=== PATIENT | male | born 1950 | race Caucasian/White ===

== ENCOUNTER → 2017-01-18 | Outpatient (CLI) | payer MEDICARE, OTHER ==
--- NOTE | 2017-01-19 13:06 | XCELERA REPORT ---
[address] [address] Lower Extremity Arterial Evaluation Name: CAITLYN GLASGOW Age: 66 yrs Gender: Male : 1950 Patient Status: Outpatient Patient Location: Study Date: 01/18/2017 09:22 AM Procedure: A color flow and duplex scan of the lower extremity arteries was performed bilaterally with velocity and waveform anaylsis. Ankle brachial indicies performed. Reason For Study: LEFT CALF ULCER Ordering Physician: WU MALAVE Performed By: Quentin Ma Right Side Arterial Evaluation Normal velocity and triphasic waveforms noted from the Common Femoral artery to the infrageniculate vessels. 0 % stenosis noted . Ankle Brachial index is 1.36. Left Side Arterial Evaluation Normal velocity and triphasic waveforms noted from the Common Femoral artery to the Popliteal artery. Biphasic in the infrageniculate vessels. Maintained velocities, moderate broadening 20-49 % stenosis noted . At the infrageniculate level Ankle Brachial index is 1.37. Interpretation Summary No hemodynamically significant lesions in the right lower extremity only, on duplex imaging, at rest. Moderate hemodynamically significant lesions in the left lower extremity only, on duplex imaging, at rest. : WU MALAVE > Hernesto Nazario
--- NOTE | 2017-01-22 16:51 | XCELERA REPORT ---
[address] [address] Lower Extremity Venous Evaluation Name: CAITLYN GLASGOW Age: 66 yrs Gender: Male : 1950 Patient Status: Outpatient Patient Location: Study Date: 01/18/2017 09:49 AM Procedure: A bilateral duplex scan of the lower extremity veins was performed. The evaluation included responses to compression and other maneuvers with patient in the supine and standing positions to assess venous insufficiency. Reason For Study: LEFT CALF ULCER Ordering Physician: WU MALAVE Performed By: Quentin Ma Right Sided Venous Evaluation Deep venous system evaluatiion shows patent veins with no obstruction or significant reflux identified. Sapheno Femoral junction: no reflux. Femoral vein reflux: no reflux. Greater Saphenous vein, Proximal thigh: reflux: no reflux. Greater Saphenous vein, Mid thigh: reflux: 3.9 seconds, 5 mm diameter. Greater Saphenous vein, Distal thigh: reflux: no reflux. Greater Saphenous vein, Proximal below knee: reflux: 4.1 seconds, 7 mm diameter. No significant Perforators identified. Left Sided Venous Evaluation Deep venous system evaluatiion shows patent veins with no obstruction or significant reflux identified. Sapheno Femoral junction: no reflux. Femoral vein reflux: 3.3 seconds. Greater Saphenous vein, Proximal thigh: reflux: no reflux. Greater Saphenous vein, Mid thigh: reflux: 1.5 seconds.13 mm. Greater Saphenous vein, Distal thigh: reflux: 2.4 seconds.8 mm. Greater Saphenous vein, Proximal below knee: reflux: 1.5 seconds, 7 mm diameter. Greater Saphenous vein, Mid below knee: reflux: 2.4 seconds, 7 mm diameter. No significant Perforators identified. Interpretation Summary No duplex evidence of DVT or obstruction in the bilateral lower extremities. Reflux as noted. Pattern of disease on the left may be susceptible to closure. : WU MALAVE [place]
== END ==
LOC: SP 08:36
PROVIDERS: ATTEND Nurse Practitioner Family
DX: L97.222 Non-pressure chronic ulcer of left calf with fat layer exposed (principal)
CPT/HCPCS: 93925; 93970

== ENCOUNTER → 2019-05-06 | Outpatient (CLI) | payer MEDICARE, OTHER ==
--- NOTE | 2019-05-06 10:22 | RADIOLOGY REPORT (SQ) ---
EXAM DESCRIPTION: U/S RETROPERITON (RENAL/AORTA) COMPLETED DATE/TIME: 05/06/2019 10:13 am REASON FOR STUDY: N18.3 CHRONIC KIDNEY DISEASE, STAGE 3 (MODERATE) N18.3 CHRONIC KIDNEY DISEASE, ST AGE 3 (MODERATE) COMPARISON: None. TECHNIQUE: Dynamic and static grayscale images acquired of the kidneys and bladder and recorded on P ACS. Additional selected color Doppler and spectral images recorded. LIMITATIONS: None. FINDINGS: RIGHT KIDNEY: The right kidney measures 11.0 cm in length. Echogenicity is mildly incre ased. No solid or suspicious masses. No hydronephrosis. No calcifications. LEFT KIDNEY: The left kidney measures 12.8 cm in length. Echogenicity is mildly increased. No so lid or suspicious masses. No hydronephrosis. No calcifications. BLADDER: No masses. OTHER FINDINGS: No other significant finding. IMPRESSION: Normal renal size. Mild increased echogenicity bilaterally. No hydronephrosis. TECHNICAL DOCUMENTATION: JOB ID: [id number] [employer]- All Rights Reserved Reading location - IP/workstation name: [email or web address]
== END ==
LOC: RAD 09:36
PROVIDERS: ATTEND Internal Medicine
DX: N18.3 Chronic kidney disease, stage 3 (moderate) (principal)
CPT/HCPCS: 76770

== ENCOUNTER 2019-05-08 16:21 | Inpatient (IN) | payer MEDICARE, OTHER ==
[2019-05-08 17:33] LABS: ABSOLUTE BASOPHILS # (AUTO) 0.1 10^3/uL (0.0-0.2); ABSOLUTE EOSINOPHILS # (AUTO) 0.2 10^3/uL (0.0-0.6); ABSOLUTE LYMPHOCYTES (AUTO) 0.8 10^3/uL (0.5-4.7); ABSOLUTE MONOCYTES (AUTO) 0.9 10^3/uL (0.1-1.4); ABSOLUTE NEUT (AUTO) 3.3 10^3/uL (1.7-8.2); BASOPHILS % (AUTO) 1.4 % (0-2); EOSINOPHILS % (AUTO) 4.1 % (0-6); HEMATOCRIT 29.6 % (37.9-51.0); LYMPHOCYTES % (AUTO) 14.7 % (13-45); MEAN CORPUSCULAR HEMOGLOBIN 32.3 pg (27.0-33.4); MEAN CORPUSCULAR HGB CONC 33.8 g/dL (32.0-36.0); MEAN CORPUSCULAR VOLUME 96 fl (80-97); MONOCYTES % (AUTO) 16.5 % (3-13); PLATELET COUNT 184 10^3/uL (150-450); RED CELL DISTRIBUTION WIDTH 16.7 % (11.5-14.0); SEGMENTED NEUTROPHILS % (AUTO) 63.3 % (42-78); TOTAL CELLS COUNTED % (AUTO) 100 %; WHITE BLOOD COUNT 5.2 10^3/uL (4.0-10.5)
[2019-05-08 17:37] LABS: VENOUS BLOOD BASE EXCESS -0.8 mmol/L; VENOUS BLOOD HCO3 23.6 mmol/L (20-32); VENOUS BLOOD PCO2 37.9 mmHg (35-63); VENOUS BLOOD PH 7.41 (7.30-7.42)
[2019-05-08 17:53] LABS: ALKALINE PHOSPHATASE 118 U/L (38-126); ANION GAP 9 (5-19); ASPARTATE AMINO TRANSFERASE 22 U/L (17-59); BILIRUBIN,DIRECT 0.4 mg/dL (0.0-0.4); BLOOD UREA NITROGEN 34 mg/dL (7-20); CALCIUM 8.9 mg/dL (8.4-10.2); CARBON DIOXIDE 25 mmol/L (22-30); CHLORIDE 111 mmol/L (98-107); GLUCOSE 80 mg/dL (75-110); POTASSIUM 3.8 mmol/L (3.6-5.0); TOTAL PROTEIN 6.1 g/dL (6.3-8.2)
[2019-05-08 17:54] LABS: INTERNATIONAL RATION (INR) 1.23; PROTHROMBIN TIME 15.6 SEC (11.4-15.4)
[2019-05-08 20:14] LABS: APPEARANCE,URINE CLEAR; BILIRUBIN,URINE NEGATIVE (NEGATIVE); COLOR,URINE YELLOW; GLUCOSE, URINE NEGATIVE (NEGATIVE); KETONES,URINE NEGATIVE (NEGATIVE); LEUKOCYTE ESTERASE,URINE NEGATIVE (NEGATIVE); NITRITE,URINE NEGATIVE (NEGATIVE); PROTEIN,URINE NEGATIVE (NEGATIVE); URINE SPECIFIC GRAVITY 1.013; UROBILINOGEN,URINE NEGATIVE mg/dL (<2.0)
[2019-05-08 20:35] LABS: ADD MANUAL MICROSCOPIC YES
[2019-05-08 20:37] LABS: BACTERIA,URINE TRACE /HPF
--- NOTE | 2019-05-08 20:47 | ER Document Report ---
HPI - HPI Patient complains to provider of: weakness, shaking Time Seen by Provider: 05/08/19 20:21 Onset: Last week Onset/Duration: Gradual, Waxing and waning Quality of pain: No pain Severity: Mild Pain Level: Denies Context: 69 yr old male with the list pmh, here for multiple nonspecific complaints, accompanied by his , that have worsened over the last week or more. endorses worsening resting tremors, generalized fatigue, and malaise. no hx of parkinsons or recent etoh use. however states he used to be a heavy drinker >20yrs ago. also states he hasn't been as mobile and able to get around to do his adl's like he use to despite using his chronic walker. states he has fallen multiple times at home with the last being today when he was trying to get up out of his chair so they came in. she denies him hitting his head, laying on the ground for extended periods of time, and no loc. no vomiting. no blood thinners other than asa and xarelto for hx of a. fib. he is also rate controlled with hydralazine, metoprolol, and norvasc per . also on thyroid meds. the pt himself is a poor historian and denies any complaints and is just asking to go home, secondary to this, hx is somewhat limited and mostly taken from who appears well versed in his care and is at bedside. pts states he isn't a complainer and he has siblings and close family members that aren't doing well health britt and he is worried he is about to of health issues also. he denies si/hi, or vis/aud hallucinations. he does feel safe at home. no changes in meds or diet. no changes in weight. pcp is dr do. no recent illness. no recent abx or steroids. hx of diabetes but states sugars are well controlled. no hx of asthma. not on home o2. he does appear a little sob on exam; however, does speak in full but slightly shorter winded sentences but continues to deny and sx or that he is sob or having any trouble breathing. 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 he has chronic bilat lower extremity lymphedema with chronic nonhealing venous stasis wounds to his lower legs that the manages and states they are at baseline to even a little improved from what they have been in the past. denies any recent recent stress, echo, cath, or cva work up. no prior hx of mi, cva, or tia. he does have a hx of chf. he is on hctz only. denies intoxication. hasn't f/u for his sx as per pt doesn't like to go to the doctors. endorses med compliance. no other complaints at this time. he is able to walk. no other changes in neurologic per . also states he is usually bradycardic but never gets below high 40s and usually runs high 40s-low 60s. Exacerbated by: Movement Relieved by: Remaining still Similar symptoms previously: No Recently seen / treated by doctor: No - ROS Systems Reviewed and Negative: Yes All other systems reviewed and negative - To include 10 systems, unless mentioned in the hpi. Past Medical History - General Information source: Patient, Relative - - Social History Smoking Status: Former Smoker Frequency of alcohol use: None Drug Abuse: None Lives with: Spouse/Significant other Family History: Reviewed & Not Pertinent Patient has suicidal ideation: No Patient has homicidal ideation: No - Past Medical History Cardiac Medical History: Reports: Hx Atrial Fibrillation - paroxysmal-rate controlled with metoprolol, norvasc, hydralazine per , Hx Congestive Heart Failure, Hx Coronary Artery Disease, Hx Hypercholesterolemia, Hx Hypertension, Hx Peripheral Vascular Disease, Hx Pulmonary Embolism - on xarelto and asa, Other - chronic bilat lower extremity lymphedema. L>R Pulmonary Medical History: Reports: Hx Pneumonia - a few times yearly, Hx Sleep Apnea - obstructive-not compliant with cpap Denies: Hx Asthma, Hx COPD, Hx Tuberculosis Neurological Medical History: Denies: Hx Cerebrovascular Accident, Hx Migraine, Hx Seizures Endocrine Medical History: Reports: Hx Diabetes Mellitus Type 2, Hx Hypothyroidism Renal/ Medical History: Reports: Hx Renal Insufficiency. Denies: Hx Hemodialysis, Hx Kidney Stones, Hx Peritoneal Dialysis GI Medical History: Reports: Hx Gastroesophageal Reflux Disease Musculoskeletal Medical History: Reports Hx Arthritis, Reports Hx Musculoskeletal Deformity - chronic rle atrophy Skin Medical History: Reports Hx Cellulitis - chronic nonhealing venous stasis ulcerations-bilat lower extremities Traumatic Medical History: Denies: Hx Pneumothorax, Hx Spleen Laceration/Rupture, Hx Traumatic Brain Injury Infectious Medical History: Denies: Hx Hepatitis, Hx HIV Past Surgical History: Denies: Hx Cardiac Catheterization, Hx Internal Defibrillator, Hx Kidney (Renal Surgery), Hx Pacemaker, Hx Thyroid Surgery, Hx Valve Replacement, Hx Vascular Surgery - Immunizations Immunizations up to date: Yes Hx Diphtheria, Pertussis, Tetanus Vaccination: No Hx Pneumococcal Vaccination: 08/27/10 Vertical Provider Document - CONSTITUTIONAL General Appearance: No Apparent Distress Notes: >>>> PHYSICAL_EXAM: GENERAL_APPEARANCE: well_nourished, alert, cooperative, no_acute_distress, no_obvious_discomfort. pleasant, morbidly obese elderly white male who appears chronically debilitated, mild tachypnea but still speaks in full sentences, smiling, in no sign of pain or resp distress, exam somewhat limited secondary to pts body habitus. at bedside VITALS: reviewed, see vital signs table. HEAD: no_swelling\tenderness on the head. normocephalic. atraumatic. no thao signs. no raccoons eyes. EARS: canals_clear_bilat, TMs_clear. EYES: PERRL, EOMI, conjunctiva_clear. NOSE: no_nasal_discharge. MOUTH: (-)decreased moisture. THROAT: no_tonsilar_inflammation/exudate/hypertrophy/lesions/thrush, no_airway_obstruction. no_lymphadenopathy NECK: supple, no_neck_tenderness, (-)thyromegaly. full rom. full strength. no carotid bruit and no jvd- not able to assess due to body habitus. no meningeal signs. no sign of central cord syndrome. BACK: no_back_tenderness. CHEST_WALL: no_chest_tenderness. no overlying skin changes LUNGS: no_wheezing, ctab (-)accessory muscle use, slight decreased air exchange bilateral. HEART: bradycardic_rate, normal_rhythm, ABDOMEN: normal_BS, soft, no_abd_tenderness, obese abd (-)guarding, (- )rebound, no distension or peritoneal signs. no cva ttp GENITALIA: deferred EXTREMITIES: strength 5/5 in all_extremities, good pulses in all_extremities, no_swelling\tenderness\edema in the extremities other than over right elbow abrasion and over chronic bilat lower extremity edema with chronic bilat non healing wounds on distal anterior tib/fib regions that have intact dressings i didn't remove. there is 2+ pitting edema bilat; however, right lower leg appears to have a chronic defect/atrophy compared to the left and the pts states that is his baseline and unchanged. full rom. gait not assessed due to pt's vitals and fall risk, good pulses. brisk cap refill. good hand broth mixer. neg martin sign, no foot drop. no other shortening or rotation of the limbs or obvious deformities. NEURO: motor and sensation intact, cranial nerves 2-12 intact, cerebellar fxn intact. pt has a resting tremor that goes away with intention. neg pronator drift. neg finger to nose. symmetric smile and faces. SKIN: warm, dry, good_color, no_rash unless otherwise noted. he does have an abrasion that is approx 5cm and oblong in shape and diameter over his right lateral elbow that is minimally ttp. no active bleeding, drainage, streaking, induration, fluctuation, or grossly visible/palpable fb. no crepitation. no bursitis. nothing amenable to suture repair. neg snuff box ttp. . MENTAL_STATUS: speech_clear, oriented_X_3, normal_affect, responds _appropriately to questions. - INFECTION CONTROL TRAVEL OUTSIDE OF THE [place] IN LAST 30 DAYS: No Course - Re-evaluation Re-evalutation: 05/08/19 23:49 pt here for likely symptomatic bradycardia. he is betablocked. labs notable for a chronic mild anemia, sharifa, elevated bnp, elevated tsh. he was also noted by to have new onset tremors worsening over he last week and increased falls at home. he has a right elbow abrasion. he was also noted to be hypoxic in the high 80s-low90s on RA so 2L of O2 was placed to maintain sats above 94%. he usually isn't on home O2. he has chronic bilat lower extremity lymphedema and nonhealing wounds managed by who is at bedside and provides most of the hx. states they are unchanged. she states he has had some memory issues over the last week also and just isn't acting himself anymore. no other changes in meds or diet. no head injury. ekg shows a fib in the 30s, no stemi, and otherwise unremarkable per dr schulz, changed from prior which was afib with rbbb. states he has never been this bradycardic before and usually runs high 40s-low 60s. he denies cp, sob, syncope, dizziness, or other sx. he has an abrasion to his right elbow, last tdap unknown so it was updated. his abrasion was cleansed via nursing and neosporin and tegaderm was placed. he has no neck ttp. no other changes in neurologic. pacer pads were placed. he had minimal to no improvement with atropine 0.5mg IV x 2; however, is beta blocked again but is otherwise stable so glucagon, insulin (betablocker OD protocol was held). even though pacer pads were on the pt just for prophylaxis. he never required external pacing via pads. cxr showed cardiomegaly but was othewise neg per rad and reviewed by myself. right elbow xr was neg per rad and reviewed by myself along with his noncon head ct. pt and informed of findings. secondary to his lab abnormalities, hypoxia, possible ams, tremors, bradycardia, etc, dr schulz advised i consult hospitalist for consideration of admission. pt's pcp is dr garza. i did consult dr. do who agreed to accept the pt to his service for further workup and tx. he did not request or advise that i do anything further in the ed and he would put the rest of the transition and orders and tx plan in the computer for the pt. care transferred to dr do in stable condition. please refer to his note for further details of the visit. On reexam, pt improved with tx listed. remained stable. nontoxic. case discussed with ER Attending, Dr. schulz, who directed and agrees with plan of care advised to give atropine 0.5mg IV x [address] do.-pts pcp(hospitalist) Documentation achieved through voice recording which may lead to some occasional accidental typographical errors. Extensive efforts have been made to proof read documentation to make sure these are the least as possible. Category Date Time Status Accucheck (ED) STAT Care 05/08/19 16:26 Completed EKG Documentation STAT Care 05/08/19 16:26 Completed Oxygen (ED) Nasal Cannula 2 lpm Care 05/08/19 23:49 Ordered PCT AccuChek Documentation NOW Care 05/08/19 16:26 Active Pacemaker [External Pacemaker (ED)] NOW Care 05/08/19 23:45 Ordered Saline Lock (ED) NOW Care 05/08/19 16:26 Completed Wound care [Dressing/Wound Care (ED)] NOW Care 05/08/19 21:59 Active CHEST 2 VIEWS [RAD] Stat Exams 05/08/19 20:[address] HEAD WITHOUT [CT] Stat Exams 05/08/19 21:58 Ordered ELBOW RIGHT AP/LAT [RAD] Stat Exams 05/08/19 21:58 Ordered BLOOD CULTURE [MC] Stat Lab 05/08/19 17:45 Received CBC WITH DIFF [HEME] Stat Lab 05/08/19 17:05 Completed COMPREHENSIVE METABOLIC PANEL [CHEM] Stat Lab 05/08/19 17:05 Completed CREATINE KINASE MB [CHEM] Stat Lab 05/08/19 17:05 Received CREATINE KINASE [CHEM] Stat Lab 05/08/19 17:05 Completed FREE T3 [CHEM] Stat Lab 05/08/19 17:05 Received LACTIC ACID SEPSIS [CHEM] Stat Lab 05/08/19 17:05 Completed MAGNESIUM [CHEM] Stat Lab 05/08/19 17:05 Completed NT PRO BNP [CHEM] Stat Lab 05/08/19 17:05 Received PROTHROMBIN TIME/INR [COAG] Stat Lab 05/08/19 17:05 Completed T4 [FREE T4 (FREE THYROXINE)] [CHEM] Stat Lab 05/08/19 17:05 Received THYROID STIMULATING HORMONE [CHEM] Stat Lab 05/08/19 17:05 Received TROPONIN I [CHEM] Stat Lab 05/08/19 17:05 Received URINALYSIS [URIN] Stat Lab 05/08/19 20:02 Completed URINE CULTURE [MC] Stat Lab 05/08/19 20:02 Received URINE DRUG SCREEN [CHEM] Stat Lab 05/08/19 20:02 Completed URINE MICROSCOPIC [URIN] Stat Lab 05/08/19 20:02 Completed VENOUS BLOOD GAS (PERIPHERAL) [CHEM] Stat Lab 05/08/19 17:05 Completed Atropine Sulfate [Atropine Inj 0.4 mg/1 ml Vial] Med 05/08/19 22:08 Once 0.5 mg IV NOW ONE Atropine Sulfate [Atropine Inj 0.4 mg/1 ml Vial] Med 05/08/19 23:34 Once 0.5 mg IV NOW ONE Diph,Pertuss(Acell),Tet Vac/Pf [Boostrix Vaccine 0.5 ml Med 05/08/19 21:59 Discontinued Syringe] 0.5 ml IM NOW ONE EKG ER ONLY [ER] Stat Oth 05/08/19 16:26 Active 05/09/19 22:55 - Vital Signs Vital signs: Temp Pulse Resp BP Pulse Ox 98.1 F 45 L 20 133/120 H 93 05/08/19 16:24 05/08/19 16:24 05/08/19 20:01 05/08/19 20:01 05/08/19 20:01 05/08/19 23:50 Temp Pulse Resp BP BP Pulse Ox 05/08/19 22:45 16 144/65 H 93 05/08/19 22:44 13 93 05/08/19 22:23 13 154/63 H 94 05/08/19 22:22 15 93 05/08/19 22:02 15 130/66 H 98 05/08/19 22:01 15 97 05/08/19 22:00 16 97 05/08/19 21:55 13 154/65 H 96 05/08/19 21:54 14 97 05/08/19 21:51 13 158/73 H 05/08/19 21:50 15 95 05/08/19 21:49 16 159/70 H 96 05/08/19 21:48 11 L 148/67 H 96 05/08/19 21:47 13 05/08/19 21:27 15 147/54 H 96 05/08/19 21:26 16 96 05/08/19 21:00 12 95 05/08/19 20:01 20 133/120 H 93 05/08/19 20:00 13 95 05/08/19 19:02 15 153/57 H 96 05/08/19 19:01 15 97 05/08/19 19:00 14 96 05/08/19 18:01 16 141/57 H 96 05/08/19 18:00 15 96 05/08/19 17:01 15 153/65 H 95 05/08/19 17:00 15 97 05/08/19 16:53 17 140/58 H 90 L 05/08/19 16:52 18 90 L 05/08/19 16:51 14 90 L 05/08/19 16:24 98.1 F 45 L 18 154/50 H 92 - Laboratory Result Diagrams: 05/09/19 06:05 05/08/19 17:05 Laboratory results interpreted by me: 05/08/19 05/08/19 05/08/19 17:05 17:05 17:05 RBC 3.10 L Hgb 10.0 L Hct 29.6 L RDW 16.7 H Shannon % (Auto) 16.5 H PT 15.6 H Sodium 145.2 H Chloride 111 H BUN 34 H Creatinine 1.68 H Est GFR ( Amer) 49 L Est GFR (MDRD) Non-Af 41 L Total Protein 6.1 L Albumin 3.0 L 05/08/19 23:36 Labs- Entire Visit 05/08/19 05/08/19 05/08/19 17:05 17:05 17:05 WBC 5.2 RBC 3.10 L Hgb 10.0 L Hct 29.6 L MCV 96 MCH 32.3 MCHC 33.8 RDW 16.7 H Plt Count 184 Lymph % (Auto) 14.7 Shannon % (Auto) 16.5 H Eos % (Auto) 4.1 Baso % (Auto) 1.4 Absolute Neuts (auto) 3.3 Absolute Lymphs (auto) 0.8 Absolute Monos (auto) 0.9 Absolute Eos (auto) 0.2 Absolute Basos (auto) 0.1 Seg Neutrophils % 63.3 PT 15.6 H INR 1.23 VBG pH VBG pCO2 VBG HCO3 VBG Base Excess Sodium 145.2 H Potassium 3.8 Chloride 111 H Carbon Dioxide 25 Anion Gap 9 BUN 34 H Creatinine 1.68 H Est GFR ( Amer) 49 L Est GFR (MDRD) Non-Af 41 L Glucose 80 POC Glucose Lactic Acid Calcium 8.9 Magnesium Total Bilirubin 1.0 Direct Bilirubin 0.4 Neonat Total Bilirubin Not Reportable Neonat Direct Bilirubin Not Reportable Neonat Indirect Bili Not Reportable AST 22 ALT 14 Alkaline Phosphatase 118 Creatine Kinase CK-MB (CK-2) Troponin I NT-Pro-B Natriuret Pep Total Protein 6.1 L Albumin 3.0 L TSH Free T4 Free T3 pg/mL Urine Color Urine Appearance Urine pH Ur Specific [place] Urine Protein Urine Glucose (UA) Urine Ketones Urine Blood Urine Nitrite Urine Bilirubin Urine Urobilinogen Ur Leukocyte Esterase Urine WBC Ur Squamous Epith Cells Urine Bacteria Urine Mucus Urine Ascorbic Acid Urine Opiates Screen Urine Methadone Screen Ur Barbiturates Screen Ur Phencyclidine Scrn Ur Amphetamines Screen U Benzodiazepines Scrn Urine Cocaine Screen U Marijuana (THC) Screen 05/08/19 05/08/19 05/08/19 17:05 17:05 17:05 WBC RBC Hgb Hct MCV MCH MCHC RDW Plt Count Lymph % (Auto) Shannon % (Auto) Eos % (Auto) Baso % (Auto) Absolute Neuts (auto) Absolute Lymphs (auto) Absolute Monos (auto) Absolute Eos (auto) Absolute Basos (auto) Seg Neutrophils % PT INR VBG pH 7.41 VBG pCO2 37.9 VBG HCO3 23.6 VBG Base Excess -0.8 Sodium Potassium Chloride Carbon Dioxide Anion Gap BUN Creatinine Est GFR ( Amer) Est GFR (MDRD) Non-Af Glucose POC Glucose Lactic Acid 1.6 Calcium Magnesium 1.7 Total Bilirubin Direct Bilirubin Neonat Total Bilirubin Neonat Direct Bilirubin Neonat Indirect Bili AST ALT Alkaline Phosphatase Creatine Kinase 110 CK-MB (CK-2) Troponin I NT-Pro-B Natriuret Pep Total Protein Albumin TSH Free T4 Free T3 pg/mL Urine Color Urine Appearance Urine pH Ur Specific [place] Urine Protein Urine Glucose (UA) Urine Ketones Urine Blood Urine Nitrite Urine Bilirubin Urine Urobilinogen Ur Leukocyte Esterase Urine WBC Ur Squamous Epith Cells Urine Bacteria Urine Mucus Urine Ascorbic Acid Urine Opiates Screen Urine Methadone Screen Ur Barbiturates Screen Ur Phencyclidine Scrn Ur Amphetamines Screen U Benzodiazepines Scrn Urine Cocaine Screen U Marijuana (THC) Screen 05/08/19 05/08/19 05/08/19 17:05 17:05 17:17 WBC RBC Hgb Hct MCV MCH MCHC RDW Plt Count Lymph % (Auto) Shannon % (Auto) Eos % (Auto) Baso % (Auto) Absolute Neuts (auto) Absolute Lymphs (auto) Absolute Monos (auto) Absolute Eos (auto) Absolute Basos (auto) Seg Neutrophils % PT INR VBG pH VBG pCO2 VBG HCO3 VBG Base Excess Sodium Potassium Chloride Carbon Dioxide Anion Gap BUN Creatinine Est GFR ( Amer) Est GFR (MDRD) Non-Af Glucose POC Glucose 85 Lactic Acid Calcium Magnesium Total Bilirubin Direct Bilirubin Neonat Total Bilirubin Neonat Direct Bilirubin Neonat Indirect Bili AST ALT Alkaline Phosphatase Creatine Kinase CK-MB (CK-2) 1.63 Troponin I 0.027 NT-Pro-B Natriuret Pep 3820 H Total Protein Albumin TSH 8.31 H Free T4 1.94 Free T3 pg/mL 3.18 Urine Color Urine Appearance Urine pH Ur Specific [place] Urine Protein Urine Glucose (UA) Urine Ketones Urine Blood Urine Nitrite Urine Bilirubin Urine Urobilinogen Ur Leukocyte Esterase Urine WBC Ur Squamous Epith Cells Urine Bacteria Urine Mucus Urine Ascorbic Acid Urine Opiates Screen Urine Methadone Screen Ur Barbiturates Screen Ur Phencyclidine Scrn Ur Amphetamines Screen U Benzodiazepines Scrn Urine Cocaine Screen U Marijuana (THC) Screen 05/08/19 05/08/19 20:02 20:02 WBC RBC Hgb Hct MCV MCH MCHC RDW Plt Count Lymph % (Auto) Shannon % (Auto) Eos % (Auto) Baso % (Auto) Absolute Neuts (auto) Absolute Lymphs (auto) Absolute Monos (auto) Absolute Eos (auto) Absolute Basos (auto) Seg Neutrophils % PT INR VBG pH VBG pCO2 VBG HCO3 VBG Base Excess Sodium Potassium Chloride Carbon Dioxide Anion Gap BUN Creatinine Est GFR ( Amer) Est GFR (MDRD) Non-Af Glucose POC Glucose Lactic Acid Calcium Magnesium Total Bilirubin Direct Bilirubin Neonat Total Bilirubin Neonat Direct Bilirubin Neonat Indirect Bili AST ALT Alkaline Phosphatase Creatine Kinase CK-MB (CK-2) Troponin I NT-Pro-B Natriuret Pep Total Protein Albumin TSH Free T4 Free T3 pg/mL Urine Color YELLOW Urine Appearance CLEAR Urine pH 5.0 Ur Specific [place] 1.013 Urine Protein NEGATIVE Urine Glucose (UA) NEGATIVE Urine Ketones NEGATIVE Urine Blood NEGATIVE Urine Nitrite NEGATIVE Urine Bilirubin NEGATIVE Urine Urobilinogen NEGATIVE Ur Leukocyte Esterase NEGATIVE Urine WBC 1-5 Ur Squamous Epith Cells MODERATE Urine Bacteria TRACE Urine Mucus 1+ Urine Ascorbic Acid NEGATIVE Urine Opiates Screen NEGATIVE Urine Methadone Screen NEGATIVE Ur Barbiturates Screen NEGATIVE Ur Phencyclidine Scrn NEGATIVE Ur Amphetamines Screen NEGATIVE U Benzodiazepines Scrn NEGATIVE Urine Cocaine Screen NEGATIVE U Marijuana (THC) Screen NEGATIVE - Diagnostic Test Radiology reviewed: Image reviewed, Reports reviewed Radiology results interpreted by me: 05/08/19 23:50 Chest X-Ray 05/08/19 20:42 IMPRESSION: No acute disease. Elbow X-Ray 05/08/19 21:58 IMPRESSION: No fracture. Head CT 05/08/19 21:58 IMPRESSION: No acute intracranial hemorrhage. - EKG Interpretation by Me Rate: Bradycardia Rhythm: A.Fib - 36 bpm, no stemi, RBBB, LAFB, reviewed by dr schulz. changed from prior [place]/QRS: RBBB, LAHB/LAFB When compared to previous EKG there are: Changes noted Discharge - Discharge Clinical Impression: Symptomatic bradycardia, Hypoxia, Elevated brain natriuretic peptide (BNP) level, Acute kidney injury, Abrasion, Right elbow pain, Need for Tdap vaccination, Multiple falls, On beta malick at home, Ambulatory dysfunction, E levated TSH, Tremor, Memory changes Anemia Qualifiers: Anemia type: unspecified type Qualified Code(s): D64.9 - Anemia, unspecified Dyspnea Qualifiers: Dyspnea type: unspecified Qualified Code(s): R06.00 - Dyspnea, unspecified Fall Qualifiers: Encounter type: initial encounter Qualified Code(s): W19.XXXA - Unspecified fall, initial encounter Condition: Fair Disposition: ADMITTED INPATIENT Admitting Provider: Susy - consulted at 11:48pm., who agreed to accept the pt to his service for further workup and tx Unit Admitted: [facility]
[2019-05-08 21:46] LABS: URINE AMPHETAMINES SCREEN NEGATIVE; URINE BARBITURATES SCREEN NEGATIVE; URINE BENZODIAZEPINES SCREEN NEGATIVE; URINE COCAINE SCREEN NEGATIVE; URINE MARIJUANA (THC) SCREEN NEGATIVE; URINE METHADONE SCREEN NEGATIVE; URINE PHENCYCLIDINE SCREEN NEGATIVE
[2019-05-08] MEDS ORDERED: DIPH/PERTUSS(ACELL)/TETANUS VAC/PF 0.5 ML SYR (>=10YO) IM ONE (21:59)
[2019-05-08 22:00] LABS: CREATINE KINASE MB 1.63 ng/mL (<4.55); TROPONIN I 0.027 ng/mL
--- NOTE | 2019-05-08 22:03 | RADIOLOGY REPORT (SQ) ---
XR CHEST 2 VIEWS CLINICAL STATEMENT: shaking COMPARISON: Chest radiograph dated 08/27/2012. FINDINGS: Heart is markedly enlarged, similar to the prior study.. No pneumothorax. No pleural effusion. No pulmonary edema. IMPRESSION: No acute disease.
[2019-05-08 22:06] LABS: FREE T3 3.18 pg/mL (2.77-5.27); FREE T4 (FREE THYROXINE) 1.94 ng/dL (0.78-2.19)
[2019-05-08] MEDS ORDERED: ATROPINE SULFATE INJ 0.4 MG/1 ML VIAL IV ONE ×2 (22:08→23:34)
[2019-05-08 22:19] LABS: THYROID STIMULATING HORMONE 8.31 uIU/mL (0.47-4.68)
--- NOTE | 2019-05-08 22:38 | RADIOLOGY REPORT (SQ) ---
EXAM DESCRIPTION: CT HEAD WITHOUT IV CONTRAST COMPLETED DATE/TME: 05/08/2019 21:58 CLINICAL HISTORY: 69 years, Male, ams, tremors This exam was performed according to our departmental dose-optimization program which includes automated exposure control, adjustment of the mA and/or kVp according to patient size and/or use of iterative reconstruction technique where applicable. FINDINGS: No acute intracranial hemorrhage, mass effect or midline shift. No extra-axial fluid collections. Ventricles and subarachnoid spaces are preserved. Angelo-white matter differentiation is preserved. Visualized paranasal sinuses and the mastoid air cells are clear. The skull is intact. IMPRESSION: No acute intracranial hemorrhage.
--- NOTE | 2019-05-08 22:43 | RADIOLOGY REPORT (SQ) ---
XR ELBOW 1-2 VIEWS CLINICAL STATEMENT: fall trauma COMPARISON: None FINDINGS: Bony alignment is anatomic. There is no fracture or dislocation. The soft tissues are unremarkable. Fat pads are not displaced. IMPRESSION: No fracture.
[2019-05-09] MEDS: ENOXAPARIN SODIUM INJ 30 MG/0.3 ML DISP.SYRIN SUBCUT SCH ×2 (00:31→09:31)
[2019-05-09 00:33] LABS: INTERNATIONAL RATION (INR) 1.18; PROTHROMBIN TIME 15.1 SEC (11.4-15.4)
[2019-05-09 00:34] LABS: PARTIAL THROMBOPLASTIN TIME 34.1 SEC (23.5-35.8)
[2019-05-09] MEDS: FUROSEMIDE INJ/PF 40 MG/4 ML SDV IV SCH ×2 (00:36→09:31)
[2019-05-09 00:38] LABS: CREATINE KINASE MB 1.6 ng/mL (<4.55); TROPONIN I 0.031 ng/mL
[2019-05-09 00:41] LABS: FREE T4 (FREE THYROXINE) 1.79 ng/dL (0.78-2.19)
[2019-05-09 00:55] LABS: THYROID STIMULATING HORMONE 6.69 uIU/mL (0.47-4.68)
[2019-05-09 06:18] LABS: ABSOLUTE BASOPHILS # (AUTO) 0.1 10^3/uL (0.0-0.2); ABSOLUTE EOSINOPHILS # (AUTO) 0.2 10^3/uL (0.0-0.6); ABSOLUTE MONOCYTES (AUTO) 0.8 10^3/uL (0.1-1.4); ABSOLUTE NEUT (AUTO) 2.2 10^3/uL (1.7-8.2); BASOPHILS % (AUTO) 1.4 % (0-2); EOSINOPHILS % (AUTO) 4.9 % (0-6); HEMATOCRIT 31.1 % (37.9-51.0); HEMOGLOBIN 10.4 g/dL (13.5-17.0); MEAN CORPUSCULAR HEMOGLOBIN 31.9 pg (27.0-33.4); MEAN CORPUSCULAR HGB CONC 33.3 g/dL (32.0-36.0); MEAN CORPUSCULAR VOLUME 96 fl (80-97); MONOCYTES % (AUTO) 19.1 % (3-13); PLATELET COUNT 177 10^3/uL (150-450); RED BLOOD COUNT 3.25 10^6/uL (4.35-5.55); SEGMENTED NEUTROPHILS % (AUTO) 51.6 % (42-78); TOTAL CELLS COUNTED % (AUTO) 100 %; WHITE BLOOD COUNT 4.3 10^3/uL (4.0-10.5)
[2019-05-09 06:36] LABS: ALKALINE PHOSPHATASE 117 U/L (38-126); ASPARTATE AMINO TRANSFERASE 22 U/L (17-59); BILIRUBIN,DIRECT 0.4 mg/dL (0.0-0.4); BILIRUBIN,TOTAL 1.3 mg/dL (0.2-1.3); CHOLESTEROL 140.83 mg/dL (0-200); CREATINE KINASE 95 U/L (55-170); TOTAL PROTEIN 6.2 g/dL (6.3-8.2); TRIGLYCERIDES 73 mg/dL (<150)
[2019-05-09 06:47] LABS: CREATINE KINASE MB 1.57 ng/mL (<4.55); DIRECT LDL 93 mg/dL (<100); TROPONIN I 0.035 ng/mL
--- NOTE | 2019-05-09 08:52 | EKG REPORT ---
SEVERITY:- ABNORMAL ECG - ATRIAL FIBRILLATION RBBB AND LAFB : Confirmed by: Karin Leiva MD 09-May-2019 08:51:56
--- NOTE | 2019-05-09 08:52 | EKG REPORT ---
SEVERITY:- ABNORMAL ECG - JUNCTIONAL ESCAPE RHYTHM RIGHT BUNDLE BRANCH BLOCK REGULARISATION OF RR IN PATIENT WITH H/O A FIB.CONSIDER HIGH GRADE AV BLOCK.? DIG TOXICITY VERSUS AV YULISA BLOCKING MEDICATION OVERDOSE : Confirmed by: Karin Leiva MD 09-May-2019 08:51:48
[2019-05-09 12:58] LABS: CREATINE KINASE MB 1.42 ng/mL (<4.55); TROPONIN I 0.035 ng/mL
[2019-05-09] MEDS ORDERED: (PENDING PHARMACY ID) (Losartan/Hydrochlorothiazide [Hyzaar 100-25 Tablet] 1 EACH) PO SCH (18:30)
[2019-05-09] MEDS ORDERED: LEVOTHYROXINE SODIUM 0.1 MG TABLET PO ONE (18:45)
[2019-05-09] MEDS: HYDRALAZINE HCL 50 MG TABLET PO SCH (20:03)
[2019-05-09] MEDS: PANTOPRAZOLE SODIUM 40 MG TABLET.DR PO SCH (20:03)
[2019-05-09] MEDS: ASPIRIN 81 MG TABLET, ENT COATED PO SCH (20:03)
[2019-05-09] MEDS: METFORMIN HCL 500 MG TABLET PO SCH (20:04)
[2019-05-09] MEDS: FERROUS SULFATE 325 MG TABLET PO SCH (20:04)
--- NOTE | 2019-05-09 21:24 | PDOC H&P ---
History of Present Illness Admission Date/PCP: 05/09/19 00:07 ALEXANDRA MEZA MD History of Present Illness: CAITLYN GLASGOW is a 69 year old male.He came to the emergency room for eval uation of excessive tremulousness, patient's stated that patient was having excessive involuntary tremors and he subsequently slumped to the floor, she became extremely concerned she called the rescue squad to have patient transfer to the emergency room for evaluation of his symptoms.There was no chest pain, shortness of breath, in the emergency room he was evaluated, he was found to have bradycardia, the initial EKG that was done showed junctional rhythm with a pulse rate of low 30s., The blood pressure was normal, there was no syncope, there was no loss of consciousness. The serum creatinine was 1.68, the the BNP was also elevated, TSH was 8. Patient is well-known to me from outpatient, he has diabetes mellitus type 2, morbid obesity, chronic lymphedema of the lower extremities.. The urine drug screen was negative for illegal drugs. Patient is on beta-malick, metoprolol succinate, 100 mg p.o. twice daily. The combination of metoprolol, hypothyroidism, obstructive sleep apnea, will be the etiology of the high-grade AV block.When I saw the patient he is somewhat very slow, he is typically slow but it looks slower than his usual appearance Past Medical History Cardiac Medical History: Reports: Hypertension, Pulmonary Embolism Pulmonary Medical History: Reports: Pneumonia, Sleep Apnea - obstructive Endocrine Medical History: Reports: Diabetes Mellitus Type 2 Musculoskeltal Medical History: Reports: Arthritis Social History Lives with: Spouse/Significant other Smoking Status: Former Smoker Last Time Smoked: 1981 Frequency of Alcohol Use: None Hx Recreational Drug Use: No Hx Prescription Drug Abuse: No Family History Family History: Reviewed & Not Pertinent Parental Family History Reviewed: Yes Children Family History Reviewed: Yes Sibling(s) Family History Reviewed.: Yes Medication/Allergy Home Medications: Losartan/Hydrochlorothiazide [Hyzaar 100-25 Tablet] 1 each PO DAILY 06/16/12 Metoprolol Succinate [Toprol XL 100 mg Tablet] 100 mg PO Q12 06/16/12 Aspirin [Ecotrin 81 mg EC Tablet] 81 mg PO DAILY 05/09/19 Cyanocobalamin (Vitamin B-12) [Vitamin B-12 Inj 1000 Mcg/1 ml Vial] 1,000 mcg IM TU@1000 05/09/19 Ergocalciferol (Vitamin D2) [Drisdol 50,000 Unit (1.25MG) Capsule] 50,000 unit PO MO@1000 05/09/19 Ferrous Sulfate [Feosol 325 mg Tablet] 325 mg PO TID 05/09/19 Gabapentin [Neurontin 300 mg Capsule] 300 mg PO Q8 05/09/19 Hydralazine HCl [Apresoline 50 mg Tablet] 50 mg PO BID 05/09/19 Ibuprofen 200 mg PO DAILYP PRN 05/09/19 Levothyroxine Sodium [Synthroid 0.075 mg Tablet] 0.075 mg PO DAILY 05/09/19 Metformin HCl [Glucophage 500 mg Tablet] 1,000 mg PO BID 05/09/19 Pantoprazole Sodium [Protonix [address] Tablet] 40 mg PO DAILY 05/09/19 Sitagliptin Phosphate [Januvia] 100 mg PO DAILY 05/09/19 Allergies/Adverse Reactions: doxycycline Adverse Reaction (Severe, Verified 05/08/19 17:29) Diarrhea Review of Systems ROS unobtainable: Other - It is difficult to obtain review of system history for this patient he is somewhat very drowsy, I am not sure what is causing is diminished responsiveness to questioning is awake but is very slow in responding to question Physical Exam Vital Signs: Temp Pulse Resp BP Pulse Ox 97.3 F 37 L 18 153/63 H 95 05/09/19 17:56 05/09/19 19:00 05/09/19 17:56 05/09/19 17:56 05/09/19 17:56 Intake & Output 05/08/19 05/09/19 05/10/19 06:59 06:59 06:59 Intake Total 250 480 Output Total 3140 6705 Balance -2890 -2145 Weight 155.9 kg General appearance: PRESENT: morbidly obese Eye exam: PRESENT: PERRLA Respiratory exam: PRESENT: clear to auscultation gerson Cardiovascular exam: PRESENT: +S1, +S2 GI/Abdominal exam: PRESENT: soft Neurological exam: PRESENT: alert, CN II-XII grossly intact Results Laboratory Results: 05/09/19 06:05 05/08/19 17:05 05/08/19 05/08/19 05/08/19 17:05 17:05 23:20 WBC RBC Hgb Hct MCV MCH MCHC RDW Plt Count Seg Neutrophils % Magnesium 1.7 1.7 Total Bilirubin AST Alkaline Phosphatase Total Protein Albumin Triglycerides Cholesterol LDL Cholesterol Direct VLDL Cholesterol HDL Cholesterol TSH 8.31 H Free T4 1.94 Free T3 pg/mL 3.18 05/08/19 05/09/19 05/09/19 23:20 06:05 06:05 WBC 4.3 RBC 3.25 L Hgb 10.4 L Hct 31.1 L MCV 96 MCH 31.9 MCHC 33.3 RDW 17.0 H Plt Count 177 Seg Neutrophils % 51.6 Magnesium Total Bilirubin 1.3 AST 22 Alkaline Phosphatase 117 Total Protein 6.2 L Albumin 3.0 L Triglycerides 73 Cholesterol 140.83 LDL Cholesterol Direct 93 VLDL Cholesterol 15.0 HDL Cholesterol 34 L TSH 6.69 H Free T4 1.79 Free T3 pg/mL 05/08/19 20:02 Clean Catch Midstream Urine Culture - Final Mixed Urogenital Rekha 05/08/19 05/08/19 05/08/19 17:05 17:05 23:20 Creatine Kinase 110 102 CK-MB (CK-2) 1.63 Troponin I 0.027 NT-Pro-B Natriuret Pep 3820 H 05/08/19 05/09/19 05/09/19 23:20 06:05 06:05 Creatine Kinase 95 CK-MB (CK-2) 1.60 1.57 Troponin I 0.031 0.035 NT-Pro-B Natriuret Pep 05/09/19 05/09/19 12:00 12:00 Creatine Kinase 94 CK-MB (CK-2) 1.42 Troponin I 0.035 NT-Pro-B Natriuret Pep Impressions: Chest X-Ray 05/08/19 20:42 IMPRESSION: No acute disease. Elbow X-Ray 05/08/19 21:58 IMPRESSION: No fracture. Head CT 05/08/19 21:58 IMPRESSION: No acute intracranial hemorrhage. Assessment & Plan - Diagnosis (1) High-grade atrioventricular block Is this a current diagnosis for this admission?: Yes Plan: The combination of beta-malick, metoprolol, hypothyroidism, sleep apnea could be the etiology of the high-grade AV node blockage. The metoprolol will be held, patient with a history of hypothyroidism presently on replacement therapy with 75 MCG of Synthroid, the dose will be increased to 100 MCG p.o. daily,The target TSH for the management of hypothyroidism is TSH of 1-2, the measured TSH on this admission is 8 suggesting that the replacement is therapy with Synthroid is not achieving target TSH,2D echo will be ordered to assess LV function in light of the elevated B type natruretic peptide, the elevated BNP could be from kidney failure, or CHF. (2) Acute renal failure superimposed on chronic kidney disease Qualifiers: Acute renal failure type: unspecified Chronic kidney disease stage: stage 3 (moderate) Qualified Code(s): N17.9 - Acute kidney failure, unspecified; N18.3 - Chronic kidney disease, stage 3 (moderate) Is this a current diagnosis for this admission?: Yes (3) Morbid obesity Is this a current diagnosis for this admission?: Yes (4) Encephalopathy, unspecified Is this a current diagnosis for this admission?: Yes Plan: He has unspecified encephalopathy, He is alert but very slow to respond to questions the initial CAT scan of the head that was done did not demonstrate any acute pathology, patient may require MRI of the head, he is very obese, the weight may be a contraindication to getting an MRI because I am not sure the MRI in this hospital have the capabilities to accommodate the weight of this kind of patient the BMI is 49
[2019-05-09] MEDS: SILVER SULFADIAZINE 1% CREAM 50 GM TP SCH (21:55)
--- NOTE | 2019-05-09 23:01 | RADIOLOGY REPORT (SQ) ---
MR BRAIN WITHOUT IV CONTRAST EXAM DATE: 05/09/2019 12:00 AM CDT HISTORY: Unspecified encephalopathy. COMPARISON: None. TECHNIQUE: Multisequence, multiplanar MR imaging of the brain was performed without the administration of intravenous gadolinium. FINDINGS: Scattered areas of T2/FLAIR hyperintense foci are seen in the supratentorial white matter and the eduar and cerebellum, likely representing chronic microvascular ischemia. There is no acute infarction, intracranial hemorrhage, extra-axial fluid collection, or mass. The brainstem, posterior fossa, and cervicomedullary junction are preserved. The intravascular flow voids are preserved. The orbits are unremarkable. No abnormality of the skull base or calvarium is seen. Small retention cyst in the bilateral maxillary sinuses. IMPRESSION: No acute intracranial findings.
--- NOTE | 2019-05-09 23:08 | EKG REPORT ---
SEVERITY:- ABNORMAL ECG - RIGHT BUNDLE BRANCH BLOCK ATRIAL FIBRILLATION WITH SLOW VR : Confirmed by: Karin Leiva MD 09-May-2019 23:06:53
[2019-05-10] MEDS: LEVOTHYROXINE SODIUM 0.1 MG TABLET PO SCH (06:15)
[2019-05-10 06:16] LABS: ABSOLUTE BASOPHILS # (AUTO) 0.1 10^3/uL (0.0-0.2); ABSOLUTE EOSINOPHILS # (AUTO) 0.2 10^3/uL (0.0-0.6); ABSOLUTE LYMPHOCYTES (AUTO) 0.9 10^3/uL (0.5-4.7); ABSOLUTE MONOCYTES (AUTO) 0.8 10^3/uL (0.1-1.4); ABSOLUTE NEUT (AUTO) 2.3 10^3/uL (1.7-8.2); BASOPHILS % (AUTO) 1.4 % (0-2); EOSINOPHILS % (AUTO) 5.2 % (0-6); HEMOGLOBIN 10.1 g/dL (13.5-17.0); LYMPHOCYTES % (AUTO) 21.7 % (13-45); MEAN CORPUSCULAR HEMOGLOBIN 32.1 pg (27.0-33.4); MEAN CORPUSCULAR HGB CONC 33.8 g/dL (32.0-36.0); MEAN CORPUSCULAR VOLUME 95 fl (80-97); MONOCYTES % (AUTO) 18.2 % (3-13); PLATELET COUNT 181 10^3/uL (150-450); RED BLOOD COUNT 3.16 10^6/uL (4.35-5.55); RED CELL DISTRIBUTION WIDTH 16.6 % (11.5-14.0); SEGMENTED NEUTROPHILS % (AUTO) 53.5 % (42-78); TOTAL CELLS COUNTED % (AUTO) 100 %; WHITE BLOOD COUNT 4.4 10^3/uL (4.0-10.5)
[2019-05-10 06:35] LABS: ANION GAP 7 (5-19); BLOOD UREA NITROGEN 24 mg/dL (7-20); CALCIUM 9.1 mg/dL (8.4-10.2); CARBON DIOXIDE 31 mmol/L (22-30); CHLORIDE 106 mmol/L (98-107); GLUCOSE 89 mg/dL (75-110); POTASSIUM 3.4 mmol/L (3.6-5.0)
[2019-05-10] MEDS: FUROSEMIDE INJ/PF 40 MG/4 ML SDV IV SCH (09:22)
[2019-05-10] MEDS: METFORMIN HCL 500 MG TABLET PO SCH ×2 (09:22→17:21)
[2019-05-10] MEDS: PANTOPRAZOLE SODIUM 40 MG TABLET.DR PO SCH (09:22)
[2019-05-10] MEDS: SITAGLIPTIN PHOSPHATE 50 MG TABLET PO SCH (09:23)
[2019-05-10] MEDS: ENOXAPARIN SODIUM INJ 30 MG/0.3 ML DISP.SYRIN SUBCUT SCH (09:25)
[2019-05-10] MEDS: ASPIRIN 81 MG TABLET, ENT COATED PO SCH (09:25)
[2019-05-10] MEDS: HYDRALAZINE HCL 50 MG TABLET PO SCH ×2 (09:25→17:21)
[2019-05-10] MEDS: FERROUS SULFATE 325 MG TABLET PO SCH ×3 (09:25→17:21)
[2019-05-10] MEDS: HYDROCHLOROTHIAZIDE 25 MG TABLET PO SCH (11:44)
[2019-05-10] MEDS: LOSARTAN POTASSIUM 50 MG TABLET PO SCH (11:44)
[2019-05-10] MEDS: SILVER SULFADIAZINE 1% CREAM 50 GM TP SCH ×2 (11:45→17:52)
[2019-05-10] MEDS ORDERED: GLUCAGON,HUMAN RECOMB 1 MG INJ IV ONE (16:00)
--- NOTE | 2019-05-10 16:10 | PDOC PROGRESS REPORT ---
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 The beta-malick is on hold at this time, the heart rate remains persistently low, below 40, we will give glucagon intravenously to increase the heart rate Reason For Visit: HEART FAILURE Physical Exam Vital Signs: Temp Pulse Resp BP Pulse Ox 97.3 F 34 L 18 147/43 H 98 05/10/19 11:42 05/10/19 14:00 05/10/19 11:42 05/10/19 11:42 05/10/19 11:42 Intake & Output 05/09/19 05/10/19 05/11/19 06:59 06:59 06:59 Intake Total 250 780 Output Total 3140 4325 Balance -2890 -3135 Weight 155.9 kg 148.3 kg General appearance: PRESENT: no acute distress Eye exam: PRESENT: PERRLA Respiratory exam: PRESENT: clear to auscultation gerson Cardiovascular exam: PRESENT: +S1, +S2 GI/Abdominal exam: PRESENT: soft Neurological exam: PRESENT: alert Results Laboratory Results: 05/10/19 06:01 05/10/19 06:01 05/10/19 05/10/19 06:01 06:01 WBC 4.4 RBC 3.16 L Hgb 10.1 L Hct 30.0 L MCV 95 MCH 32.1 MCHC 33.8 RDW 16.6 H Plt Count 181 Seg Neutrophils % 53.5 Sodium 143.8 Potassium 3.4 L Chloride 106 Carbon Dioxide 31 H Anion Gap 7 BUN 24 H Creatinine 1.38 H Est GFR ( Amer) > 60 Glucose 89 Calcium 9.1 05/08/19 20:02 Clean Catch Midstream Urine Culture - Final Mixed Urogenital Rekha 05/08/19 05/08/19 05/08/19 17:05 17:05 23:20 Creatine Kinase 110 102 CK-MB (CK-2) 1.63 Troponin I 0.027 NT-Pro-B Natriuret Pep 3820 H 05/08/19 05/09/19 05/09/19 23:20 06:05 06:05 Creatine Kinase 95 CK-MB (CK-2) 1.60 1.57 Troponin I 0.031 0.035 NT-Pro-B Natriuret Pep 05/09/19 05/09/19 12:00 12:00 Creatine Kinase 94 CK-MB (CK-2) 1.42 Troponin I 0.035 NT-Pro-B Natriuret Pep Impressions: Chest X-Ray 05/08/19 20:42 IMPRESSION: No acute disease. Elbow X-Ray 05/08/19 21:58 IMPRESSION: No fracture. Head CT 05/08/19 21:58 IMPRESSION: No acute intracranial hemorrhage. Head MRI 05/09/19 00:00 IMPRESSION: No acute intracranial findings. Assessment & Plan - Diagnosis (1) High-grade atrioventricular block Is this a current diagnosis for this admission?: Yes (2) Acute renal failure superimposed on chronic kidney disease Qualifiers: Acute renal failure type: unspecified Chronic kidney disease stage: stage 3 (moderate) Qualified Code(s): N17.9 - Acute kidney failure, unspecified; N18.3 - Chronic kidney disease, stage 3 (moderate) Is this a current diagnosis for this admission?: Yes (3) Morbid obesity Is this a current diagnosis for this admission?: Yes (4) Encephalopathy, unspecified Is this a current diagnosis for this admission?: Yes (5) Adverse effect of beta-malick Qualifiers: Encounter type: initial encounter Qualified Code(s): T44.7X5A - Adverse effect of beta-adrenoreceptor antagonists, initial encounter Is this a current diagnosis for this admission?: Yes Plan: The heart rate remains below 40, the metoprolol is on hold, administer glucagon 5 mg IV if no response in the heart rate in 15 minutes a repeat glucagon will be given
[2019-05-10] MEDS ORDERED: GLUCAGON,HUMAN RECOMB 1 MG INJ ONE ×4 (17:30→18:50)
[2019-05-10] MEDS ORDERED: GLUCAGON,HUMAN RECOMB 1 MG INJ IM PRN (23:30)
[2019-05-10] MEDS ORDERED: DEXTROSE 50%-WATER SYRINGE 25 GM/50 ML DOSE IV PRN (23:30)
[2019-05-10] MEDS ORDERED: DEXTROSE 40% GEL 15 GM TUBE PO PRN (23:30)
[2019-05-10] MEDS ORDERED: DEXTROSE 50%-WATER SYRINGE 12.5 GM/25 ML DOSE IV PRN (23:30)
[2019-05-10] MEDS ORDERED: DEXTROSE 40% GEL 15 GM TUBE X 2 PO PRN (23:30)
[2019-05-11] MEDS: LEVOTHYROXINE SODIUM 0.1 MG TABLET PO SCH (05:25)
[2019-05-11] MEDS: INSULIN LISPRO 100 UNIT/ML 3 ML VIAL SUBCUT SCH ×4 (08:32→21:13)
[2019-05-11] MEDS: HYDROCHLOROTHIAZIDE 25 MG TABLET PO SCH (09:41)
[2019-05-11] MEDS: HYDRALAZINE HCL 50 MG TABLET PO SCH ×2 (09:41→17:53)
[2019-05-11] MEDS: SITAGLIPTIN PHOSPHATE 50 MG TABLET PO SCH (09:41)
[2019-05-11] MEDS: PANTOPRAZOLE SODIUM 40 MG TABLET.DR PO SCH (09:42)
[2019-05-11] MEDS: FERROUS SULFATE 325 MG TABLET PO SCH ×3 (09:42→17:53)
[2019-05-11] MEDS: METFORMIN HCL 500 MG TABLET PO SCH ×2 (09:42→17:53)
[2019-05-11] MEDS: ASPIRIN 81 MG TABLET, ENT COATED PO SCH (09:42)
[2019-05-11] MEDS: LOSARTAN POTASSIUM 50 MG TABLET PO SCH (09:42)
[2019-05-11] MEDS: ENOXAPARIN SODIUM INJ 30 MG/0.3 ML DISP.SYRIN SUBCUT SCH (09:42)
[2019-05-11] MEDS: SILVER SULFADIAZINE 1% CREAM 50 GM TP SCH ×2 (09:46→19:29)
--- NOTE | 2019-05-11 16:31 | PDOC PROGRESS REPORT ---
Subjective Progress Note for:: 05/11/19 Subjective:: Patient was seen by the bedside, he has beta-malick poisoning, the presentation is highly suggestive, today he was more alert yesterday he was giving boluses of intravenous glucagon, the heart rate improved in the 40 range before the glucagon was given the heart rate was in the 30s. Reason For Visit: HEART FAILURE Physical Exam Vital Signs: Temp Pulse Resp BP Pulse Ox 97.9 F 35 L 18 164/49 H 96 05/11/19 11:56 05/11/19 11:56 05/11/19 11:56 05/11/19 11:56 05/11/19 11:56 Intake & Output 05/10/19 05/11/19 05/12/19 06:59 06:59 06:59 Intake Total 780 980 Output Total 4325 5250 Balance -3545 -8960 Weight 148.3 kg 146.2 kg General appearance: PRESENT: no acute distress Eye exam: PRESENT: PERRLA Respiratory exam: PRESENT: clear to auscultation gerson Cardiovascular exam: PRESENT: +S1, +S2 Neurological exam: PRESENT: alert, CN II-XII grossly intact Results Laboratory Results: 05/10/19 06:01 05/10/19 06:01 05/08/19 05/08/19 05/08/19 17:05 17:05 23:20 Creatine Kinase 110 102 CK-MB (CK-2) 1.63 Troponin I 0.027 NT-Pro-B Natriuret Pep 3820 H 05/08/19 05/09/19 05/09/19 23:20 06:05 06:05 Creatine Kinase 95 CK-MB (CK-2) 1.60 1.57 Troponin I 0.031 0.035 NT-Pro-B Natriuret Pep 05/09/19 05/09/19 12:00 12:00 Creatine Kinase 94 CK-MB (CK-2) 1.42 Troponin I 0.035 NT-Pro-B Natriuret Pep Impressions: Chest X-Ray 05/08/19 20:42 IMPRESSION: No acute disease. Elbow X-Ray 05/08/19 21:58 IMPRESSION: No fracture. Head CT 05/08/19 21:58 IMPRESSION: No acute intracranial hemorrhage. Head MRI 05/09/19 00:00 IMPRESSION: No acute intracranial findings. Assessment & Plan - Diagnosis (1) High-grade atrioventricular block Is this a current diagnosis for this admission?: Yes (2) Acute renal failure superimposed on chronic kidney disease Qualifiers: Acute renal failure type: unspecified Chronic kidney disease stage: stage 3 (moderate) Qualified Code(s): N17.9 - Acute kidney failure, unspecified; N18.3 - Chronic kidney disease, stage 3 (moderate) Is this a current diagnosis for this admission?: Yes (3) Morbid obesity Is this a current diagnosis for this admission?: Yes (4) Encephalopathy, unspecified Is this a current diagnosis for this admission?: Yes (5) Adverse effect of beta-malick Qualifiers: Encounter type: initial encounter Qualified Code(s): T44.7X5A - Adverse effect of beta-adrenoreceptor antagonists, initial encounter Is this a current diagnosis for this admission?: Yes - Plan Summary Plan Summary: Continue present line of management
--- NOTE | 2019-05-11 19:16 | XCELERA REPORT ---
[address] [address] Transthoracic Echocardiogram Report Name: CAITLYN GLASGOW Age: 69 yrs Gender: Male : 1950 Patient Status: Inpatient Patient Location: [address] [place], [place] [id number] Study Date: 05/09/2019 11:16 AM Height: 71 in Weight: 298 lb BSA: 2.5 m2 Procedure: A two-dimensional transthoracic echocardiogram with color flow and Doppler was performed. The study was technically limited with all images being suboptimal in quality. Reason For Study: chf History: CHF. Ordering Physician: ALEXANDRA MEZA Performed By: Yuli Curran Interpretation Summary The left ventricle is normal in size. There is normal left ventricular wall thickness. LV EF is 60% The left ventricular ejection fraction is within normal limits. The left ventricular wall motion is normal. Paradoxical septal motion is consistent with right ventricular volume overload There is no thrombus. No ASD ,VSD , or PFO seen The right ventricle is moderately dilated. The left atrial size is normal. There is no mitral valve stenosis. There is a mild to moderate amount of mitral regurgitation There is no evidence of mitral valve prolapse. There is no vegetation seen on the mitral valve. There is no aortic valvular vegetation. There is aortic sclerosis without aortic stenosis. There is no LVOT obstruction. There is a trace amount of aortic regurgitation There is no tricuspid stenosis. There is a moderate amount of tricuspid regurgitation There is servere pulmonary hypertension by echo TVSP is 63 to 68 mm of Hg , with RA mean of 15 to 20. There is no pulmonic valvular stenosis. There is a trace amount of pulmonic regurgitation The aortic root is normal size. The inferior vena cava appeared dilated and decreased < 50% with respiration (RAP 15-20 mmHg) There is no pericardial effusion. MMode/2D Measurements & Calculations RVDd: 6.3 cm LVIDd: 7.2 cm FS: 27.8 % Ao root diam: 3.4 cm IVSd: 1.0 cm LVIDs: 5.2 cm EDV(Teich): 272.6 ml Ao root area: 9.3 cm2 LVPWd: 1.3 cm ESV(Teich): 129.5 ml EF(Teich): 52.5 % Doppler Measurements & Calculations MV E max dereck: MV dec slope: Ao V2 max: LV V1 max P.5 cm/sec 602.6 cm/sec2 127.8 cm/sec 5.5 mmHg MV A max dereck: MV dec time: Ao max PG: LV V1 max: 50.3 cm/sec 0.19 sec 6.5 mmHg 117.3 cm/sec MV E/A: 2.2 PA V2 max: PI end-d dereck: TR max dereck: 99.8 cm/sec 80.8 cm/sec 325.7 cm/sec PA max P.0 mmHg TR max P.9 mmHg Left Ventricle The left ventricle is normal in size. There is normal left ventricular wall thickness. LV EF is 60%. The left ventricular ejection fraction is within normal limits. LV diastolic function could not be adequately assessed due to atrial fibrilation. The left ventricular wall motion is normal. Paradoxical septal motion is consistent with right ventricular volume overload. There is no thrombus. No ASD ,VSD , or PFO seen. Right Ventricle The right ventricle is moderately dilated. The right ventricular systolic function is moderate to severely reduced. Atria The right atrium is moderately dilated. The left atrial size is normal. Mitral Valve There is no evidence of mitral valve prolapse. There is no vegetation seen on the mitral valve. There is no mitral valve stenosis. There is a mild to moderate amount of mitral regurgitation. Aortic Valve There is no aortic valvular vegetation. There is aortic sclerosis without aortic stenosis. There is no LVOT obstruction. There is a trace amount of aortic regurgitation. Tricuspid Valve There is no tricuspid stenosis. There is a moderate amount of tricuspid regurgitation. There is servere pulmonary hypertension by echo. TVSP is 63 to 68 mm of Hg , with RA mean of 15 to 20. Pulmonic Valve There is no pulmonic valvular stenosis. There is a trace amount of pulmonic regurgitation. Great Vessels The aortic root is normal size. The inferior vena cava appeared dilated and decreased < 50% with respiration (RAP 15-20 mmHg). Effusions There is no pericardial effusion. : ALEXANDRA MEZA Lakshmi
[2019-05-12] MEDS: LEVOTHYROXINE SODIUM 0.1 MG TABLET PO SCH (06:45)
[2019-05-12] MEDS: INSULIN LISPRO 100 UNIT/ML 3 ML VIAL SUBCUT SCH ×2 (09:21→11:05)
[2019-05-12] MEDS: HYDRALAZINE HCL 50 MG TABLET PO SCH (09:39)
[2019-05-12] MEDS: ASPIRIN 81 MG TABLET, ENT COATED PO SCH (09:39)
[2019-05-12] MEDS: PANTOPRAZOLE SODIUM 40 MG TABLET.DR PO SCH (09:39)
[2019-05-12] MEDS: METFORMIN HCL 500 MG TABLET PO SCH (09:39)
[2019-05-12] MEDS: SITAGLIPTIN PHOSPHATE 50 MG TABLET PO SCH (09:40)
[2019-05-12] MEDS: LOSARTAN POTASSIUM 50 MG TABLET PO SCH (09:40)
[2019-05-12] MEDS: ENOXAPARIN SODIUM INJ 30 MG/0.3 ML DISP.SYRIN SUBCUT SCH (09:40)
[2019-05-12] MEDS: HYDROCHLOROTHIAZIDE 25 MG TABLET PO SCH (09:40)
[2019-05-12] MEDS: FERROUS SULFATE 325 MG TABLET PO SCH ×2 (09:40→14:28)
[2019-05-12] MEDS ORDERED: ERGOCALCIFEROL (VITAMIN D2) 50000 UNIT (1.25 MG) CAPSULE PO SCH (10:00)
[2019-05-12] MEDS: SILVER SULFADIAZINE 1% CREAM 50 GM TP SCH (10:40)
--- NOTE | 2019-05-12 12:49 | PDOC DISCHARGE SUMMARY ---
General - Admit/Disc Date/PCP Admission Date/Primary Care Provider: 05/09/19 00:07 ALEXANDRA MEZA MD Discharge Date: 05/12/19 - Discharge Diagnosis (1) High-grade atrioventricular block Is this a current diagnosis for this admission?: Yes (2) Acute renal failure superimposed on chronic kidney disease Is this a current diagnosis for this admission?: Yes (3) Morbid obesity Is this a current diagnosis for this admission?: Yes (4) Encephalopathy, unspecified Is this a current diagnosis for this admission?: Yes (5) Adverse effect of beta-malick Is this a current diagnosis for this admission?: Yes - Additional Information Discharge Diet: Cardiac, Diabetic Discharge Activity: Activity As Tolerated, Balance Activity w/Rest, Weigh Daily Prescriptions: Apixaban [Eliquis 2.5 mg Tablet] 2.5 mg PO BID #60 tablet Levothyroxine Sodium [Synthroid 0.1 mg Tablet] 0.1 mg PO Q6AM #90 tablet Home Medications: Losartan/Hydrochlorothiazide [Hyzaar 100-25 Tablet] 1 each PO DAILY 06/16/12 Cyanocobalamin (Vitamin B-12) [Vitamin B-12 Inj 1000 Mcg/1 ml Vial] 1,000 mcg IM TU@1000 05/09/19 Ergocalciferol (Vitamin D2) [Drisdol 50,000 unit (1.25MG) Capsule] 50,000 unit PO MO@1000 05/09/19 Ferrous Sulfate [Feosol 325 mg Tablet] 325 mg PO TID 05/09/19 Hydralazine HCl [Apresoline 50 mg Tablet] 50 mg PO BID 05/09/19 Metformin HCl [Glucophage 500 mg Tablet] 1,000 mg PO BID 05/09/19 Pantoprazole Sodium [Protonix [address] Tablet] 40 mg PO DAILY 05/09/19 Sitagliptin Phosphate [Januvia] 100 mg PO DAILY 05/09/19 Apixaban [Eliquis 2.5 mg Tablet] 2.5 mg PO BID #60 tablet 05/12/19 Levothyroxine Sodium [Synthroid 0.1 mg Tablet] 0.1 mg PO Q6AM #90 tablet 05/12/19 History of Present Illness History of Present Illness: CAITLYN GLASGOW is a 69 year old male.He came to the emergency room for evaluation of excessive tremulousness, patient's stated that patient was having excessive involuntary tremors and he subsequently slumped to the floor, she became extremely concerned she called the rescue squad to have patient transfer to the emergency room for evaluation of his symptoms.There was no chest pain, shortness of breath, in the emergency room he was evaluated, he was found to have bradycardia, the initial EKG that was done showed junctional rhythm with a pulse rate of low 30s., The blood pressure was normal, there was no syncope, there was no loss of consciousness. The serum creatinine was 1.68, the the BNP was also elevated, TSH was 8. Patient is well-known to me from outpatient, he has diabetes mellitus type 2, morbid obesity, chronic lymphedema of the lower extremities.. The urine drug screen was negative for illegal drugs. Patient is on beta-malick, metoprolol succinate, 100 mg p.o. twice daily. 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 The heart rate was in the low 30s, he was given glucagon 5 mg intravenously, The heart rate increased to in the 40 range. He also have atrial fibrillation he was discharged home on anticoagulant Eliquis Physical Exam Vital Signs: Temp Pulse Resp BP Pulse Ox 97.6 F 40 L 17 154/57 H 92 05/12/19 07:33 05/12/19 07:33 05/12/19 07:33 05/12/19 07:33 05/12/19 07:33 Intake & Output 05/11/19 05/12/19 05/13/19 06:59 06:59 06:59 Intake Total 980 670 Output Total 8460 3400 Balance -7830 -4510 Weight 146.2 kg 144.9 kg General appearance: PRESENT: no acute distress Head exam: PRESENT: atraumatic, normocephalic Eye exam: PRESENT: conjunctiva pink, EOMI, PERRLA Ear exam: PRESENT: normal external ear exam Mouth exam: PRESENT: moist, tongue midline Neck exam: PRESENT: full ROM Cardiovascular exam: PRESENT: RRR, +S1, +S2 Pulses: PRESENT: normal dorsalis pedis pul, +2 pedal pulses bilateral Vascular exam: PRESENT: normal capillary refill GI/Abdominal exam: PRESENT: normal bowel sounds, soft Rectal exam: PRESENT: deferred Neurological exam: PRESENT: alert, CN II-XII grossly intact Psychiatric exam: PRESENT: appropriate affect, normal mood Skin exam: PRESENT: dry, intact, warm Results Laboratory Results: 05/10/19 06:01 05/10/19 06:01 05/08/19 17:45 Blood Blood Culture - Final Staphylococcus Epidermidis 05/08/19 05/08/19 05/08/19 17:05 17:05 23:20 Creatine Kinase 110 102 CK-MB (CK-2) 1.63 Troponin I 0.027 NT-Pro-B Natriuret Pep 3820 H 05/08/19 05/09/19 05/09/19 23:20 06:05 06:05 Creatine Kinase 95 CK-MB (CK-2) 1.60 1.57 Troponin I 0.031 0.035 NT-Pro-B Natriuret Pep 05/09/19 05/09/19 12:00 12:00 Creatine Kinase 94 CK-MB (CK-2) 1.42 Troponin I 0.035 NT-Pro-B Natriuret Pep Impressions: Chest X-Ray 05/08/19 20:42 IMPRESSION: No acute disease. Elbow X-Ray 05/08/19 21:58 IMPRESSION: No fracture. Head CT 05/08/19 21:58 IMPRESSION: No acute intracranial hemorrhage. Head MRI 05/09/19 00:00 IMPRESSION: No acute intracranial findings. Qualifiers - * PATIENT BEING DISCHARGED WITH ANY OF THE FOLLOWING DIAGNOSIS: No VTE patient discharged on overlapping Therapy?: No Reason(s) for not prescribing Overlap Therapy:: Not indicated Stroke Pt being discharged on Anti-thrombolytic therapy?: No Reason(s) for not prescribing Anti-thrombolytic therapy:: Not indicated Stroke Pt being discharged on Anti-coagulation therapy?: No Reason(s) for not prescribing Anti-coagulation therapy:: Not indicated Stroke Pt being discharged on Statins?: No Reason(s) for not prescribing Statins therapy:: Not indicated [place] Pt being discharged on Aspirin therapy?: No Reason(s) for not prescribing Aspirin therapy:: Not indicated MN Pt being discharged on Statins?: No Reason(s) for not prescribing Statin therapy:: Not indicated MN Pt discharged ACEI/ARBS?: No Reason(s) for not prescribing ACEI/ARBS:: Not indicated Acute Heart Failure - Is this a Heart Failure Patient?: No Follow-up Appointment scheduled within 7 days?: Yes
[2019-05-12 13:19] VITALS: BP 164/54
[2019-05-13] MEDS ORDERED: CYANOCOBALAMIN (VITAMIN B-12) INJ 1000 MCG/1 ML VIAL IM SCH (10:00)
== END 2019-05-12 14:18 | disposition home or self-care (01) | DRG 308 ==
LOC: ER 16:21 → EH 05-09 00:07 → 3W 05-09 02:45
PROVIDERS: ADMIT Internal Medicine; ATTEND Internal Medicine
PROC: 3E0234Z Introduction of Serum, Toxoid and Vaccine into Muscle, Percutaneous Approach (ICD-10-PCS; principal; 2019-05-11)
DX: I44.39 Other atrioventricular block (principal); G92 Toxic encephalopathy; N17.9 Acute kidney failure, unspecified; I13.0 Hypertensive heart and chronic kidney disease with heart failure and stage 1 through stage 4 chronic kidney disease, or unspecified chronic kidney disease; Z68.42 Body mass index [BMI] 45.0-49.9, adult; I48.0 Paroxysmal atrial fibrillation; I50.9 Heart failure, unspecified; I25.10 Atherosclerotic heart disease of native coronary artery without angina pectoris; E78.00 Pure hypercholesterolemia, unspecified; I73.9 Peripheral vascular disease, unspecified; N18.3 Chronic kidney disease, stage 3 (moderate); E11.22 Type 2 diabetes mellitus with diabetic chronic kidney disease; E03.9 Hypothyroidism, unspecified; K21.9 Gastro-esophageal reflux disease without esophagitis; D64.9 Anemia, unspecified; G47.33 Obstructive sleep apnea (adult) (pediatric); E66.01 Morbid (severe) obesity due to excess calories; T44.7X5A Adverse effect of beta-adrenoreceptor antagonists, initial encounter; Y92.018 Other place in single-family (private) house as the place of occurrence of the external cause; Z86.711 Personal history of pulmonary embolism; Z79.01 Long term (current) use of anticoagulants; Z23 Encounter for immunization; Z79.84 Long term (current) use of oral hypoglycemic drugs
CPT/HCPCS: 36415; 70450; 70551; 71046; 76770; 80048; 80053; 80061; 80076; 80307; 81001; 82550; 82553; 82803; 82962; 83036; 83605; 83735; 83880; 84439; 84443; 84481; 84484; 85025; 85610; 85730; 87040; 87077; 87086; 87186; 90471; 90715; 93005; 93010; 93306; 96374; 96376; 99285; J0461; J1610; J1650; J1940; J3490